=== PATIENT | female | born 1965 | race Hispanic/Latino ===

== ENCOUNTER 2017-06-20 17:37 | Emergency (ER) | payer SELFPAY ==
[2017-06-20 18:09] LABS: #Eosinphils 0.2 thou/uL (0.0-0.7); #Lymphocytes 2.1 thou/uL (1.20-3.40); #Monocytes 0.6 thou/uL (0.11-0.59); #Neutrophils 4.9 thou/uL (1.40-6.50); %Basophils 0.3 % (0.0-1.0); %Eosinophils 2.2 % (0.0-10.0); %Lymphocytes 26.9 % (21.0-51.0); %Monocytes 8.2 % (0.0-10.0); %Neutrophils 62.4 % (42.0-75.0); Hemoglobin 13.7 g/dL (12.0-16.0); Mean Corpuscular HGB CONC 33.9 g/dL (32.0-36.0); Mean Corpuscular Hemoglobin 29.1 pg (27.0-31.0); Mean Corpuscular Volume 85.7 fl (81.0-99.0); Mean Platelet Volume 7.7 fL (7.4-10.4); Platelet Count 236 thou/uL (130-400); RBC Distribution Width 13.1 % (11.5-14.5); Red Blood Cell (RBC) Count 4.71 mill/uL (4.20-5.40); White Blood Cell (WBC) Count 7.9 thou/uL (4.8-10.8)
[2017-06-20 18:35] LABS: ALT (SGPT) 25 U/L (8-55); AST (SGOT) 17 U/L (5-34); Albumin 4.5 g/dL (3.5-5.0); Alkaline Phosphatase 93 U/L (40-150); Anion Gap 14 mmol/L (10-20); BUN (Urea Nitrogen) 23 mg/dL (9.8-20.1); Bilirubin, Total 0.3 mg/dL (0.2-1.2); Calc. Creatinine Clearance 0 mL/min (70-130); Calcium 10.1 mg/dL (7.8-10.44); Carbon Dioxide 26 mmol/L (22-29); Chloride 99 mmol/L (98-107); Estimated GFR-MDRD 60; Globulin 3.3 g/dL (2.4-3.5); Glucose 304 mg/dL (70-105); Lipase 57 U/L (8-78); Potassium 4.6 mmol/L (3.5-5.1); Protein, Total 7.8 g/dL (6.0-8.3); Sodium 134 mmol/L (136-145)
[2017-06-20 18:37] LABS: CKMB 2.1 ng/mL (0-6.6); Troponin I Less than 0.010 ng/mL (< 0.028)
[2017-06-20] MEDS ORDERED: Metoclopramide HCl 10 MG/2 ML VIAL ONE (18:38)
[2017-06-20] MEDS ORDERED: diphenhydrAMINE 12.5 MG/5 ML UDCUP ONE (18:38)
[2017-06-20] MEDS ORDERED: diphenhydrAMINE 50 MG/ML VIAL ONE (18:38)
[2017-06-20 21:19] LABS: Bilirubin Negative (Negative); Blood, Urine Negative (Negative); Clarity CLEAR (Clear); Glucose, Urine (Dipstick) >=1000 mg/dL (Negative); Leukocyte Negative (Negative); Nitrite Negative (Negative); Protein, Urine (Dipstick) Negative (Neg-Trace); Specific Gravity, Urine 1.022 (1.002-1.036); Urobilinogen 0.2 mg/dL (0.2-1.0)
== END 2017-06-20 22:11 | disposition home or self-care (01) ==
LOC: ERS 17:37
DX: E11.65 Type 2 diabetes mellitus with hyperglycemia (principal); I10 Essential (primary) hypertension; K21.9 Gastro-esophageal reflux disease without esophagitis; Z86.73 Personal history of transient ischemic attack (TIA), and cerebral infarction without residual deficits; E78.5 Hyperlipidemia, unspecified
CPT/HCPCS: 36415; 36416; 80053; 81003; 82010; 82553; 83690; 84484; 85025; 93005; 96361; 96365; 96375; J1200; J2765

== ENCOUNTER 2017-06-26 21:31 | Inpatient (IN) | payer SELFPAY ==
[~2017-06-26 21:31] MED LIST: ISOVUE-370 76%-LOCM 1 ML ONE
--- NOTE | 2017-06-26 22:11 | RAD ---
AP VIEW OF THE CHEST 06/26/17 INDICATION: Chest pain. FINDINGS: There is a right suprahilar nodular opacity which is nonspecific. There is also right paramediastinal soft tissue densities that are incompletely characterized on this current exam. The left lung is altagracia ar. No acute osseous abnormality is evident. IMPRESSION: Right suprahilar opacity is nonspecific. Recommend CT of the thorax for further evaluation. Suprahila r mass or pneumonia is not excluded. Code T POS: SAMANTHA
[2017-06-26 22:19] LABS: #Eosinphils 0.2 thou/uL (0.0-0.7); #Lymphocytes 2.2 thou/uL (1.20-3.40); #Monocytes 0.5 thou/uL (0.11-0.59); #Neutrophils 4.2 thou/uL (1.40-6.50); %Basophils 0.6 % (0.0-1.0); %Eosinophils 2.7 % (0.0-10.0); %Lymphocytes 31.1 % (21.0-51.0); %Neutrophils 58.6 % (42.0-75.0); Hemoglobin 12.2 g/dL (12.0-16.0); Mean Corpuscular HGB CONC 34.1 g/dL (32.0-36.0); Mean Corpuscular Hemoglobin 29.7 pg (27.0-31.0); Mean Corpuscular Volume 86.9 fl (81.0-99.0); Mean Platelet Volume 7.7 fL (7.4-10.4); Platelet Count 237 thou/uL (130-400); RBC Distribution Width 13.3 % (11.5-14.5); Red Blood Cell (RBC) Count 4.12 mill/uL (4.20-5.40); White Blood Cell (WBC) Count 7.1 thou/uL (4.8-10.8)
[2017-06-26 22:40] LABS: ALT (SGPT) 22 U/L (8-55); AST (SGOT) 17 U/L (5-34); Albumin 4.2 g/dL (3.5-5.0); Alkaline Phosphatase 74 U/L (40-150); Anion Gap 14 mmol/L (10-20); BUN (Urea Nitrogen) 16 mg/dL (9.8-20.1); Bilirubin, Total 0.2 mg/dL (0.2-1.2); CK (CPK) 136 U/L (29-168); Calc. Creatinine Clearance 0 mL/min (70-130); Calcium 9.5 mg/dL (7.8-10.44); Carbon Dioxide 25 mmol/L (22-29); Chloride 106 mmol/L (98-107); Estimated GFR-MDRD 73; Globulin 2.9 g/dL (2.4-3.5); Glucose 80 mg/dL (70-105); Potassium 3.6 mmol/L (3.5-5.1); Protein, Total 7.1 g/dL (6.0-8.3); Sodium 141 mmol/L (136-145)
[2017-06-26 22:43] LABS: CKMB 1.8 ng/mL (0-6.6); Troponin I Less than 0.010 ng/mL (< 0.028)
[2017-06-26] MEDS ORDERED: Ketorolac Tromethamine 30 MG/ML VIAL ONE (23:07)
--- NOTE | 2017-06-26 23:56 | CT ---
CTA OF THE THORAX UTILIZING IV CONTRAST AND 3D REFORMATTED IMAGING 06/26/17 INDICATION: History of chest pain. COMPARISON: Radiograph dated 06/26/17. FINDINGS: No central or segmental pulmonary embolus is evident. There are multiple nodules that project along the bronchi and bronchioles of the right upper and righ t lower lobe, with a few demonstrating areas of central cavitation. One of the largest seen within th e medial right lower lobe measuring 2.4 cm. No nodules are visible within the left lung. No pathologically enlarged lymph node is seen within the mediastinum. The visualized upper abdomen is unremarkable for acute abnormality. No pleural effusion, or pneumothorax is evident. No definite acu te osseous abnormality is noted. IMPRESSION: 1. Numerous large soft tissue nodules, some with cavitation, seen distributed along the bronchia l tree of the right upper lobe and right lower lobe. Differential considerations include entities ind ucing a bronchocentric granulomatosis. This can be seen in patient's with a history of asthma and is reflective of an allergic bronchopulmonary aspergillosis. Other differential considerations include a typical sarcoidosis, pulmonary metastatic disease or cavitary infectious processes like TB cannot be entirely excluded. Entity such as Nadine's granulomatosis cannot be entirely excluded. Recommend pul monary consultation. 2. No central or segmental pulmonary embolus is demonstrated. POS: SAMANTHA
[2017-06-27] MEDS ORDERED: Piperacillin/Tazobactam 3.375 GM in Sodium Chloride 0.9% 100 ML IVPB SCH (01:00)
[2017-06-27 01:36] LABS: Troponin I Less than 0.010 ng/mL (< 0.028)
[2017-06-27] MEDS ORDERED: Ondansetron ODT 4 MG TAB SL PRN (03:06)
[2017-06-27] MEDS ORDERED: Ondansetron HCl/PF 4 MG/2 ML Vial IVP PRN (03:06)
[2017-06-27] MEDS ORDERED: Acetaminophen 325 MG TAB PO PRN (03:06)
[2017-06-27 03:12] VITALS: BMI 28.2
[2017-06-27] MEDS ORDERED: Tuberculin PPD 0.1 ML VIAL I-DERMAL SCH (04:00)
[2017-06-27 05:48] LABS: Troponin I Less than 0.010 ng/mL (< 0.028)
[2017-06-27] MEDS ORDERED: Dextrose 50% Abboject 50 ML SYRINGE SLOW IVP PRN (13:13)
[2017-06-27] MEDS ORDERED: Dextrose 5% in Water 1,000 ML IV PRN (13:13)
[2017-06-27] MEDS: HumaLOG 300 UNITS/3 ML VIAL SC PRN ×2 (13:57→17:15)
[2017-06-27 15:02] LABS: Hemoglobin A1c 7.4 % (4.0-6.0)
[2017-06-27] MEDS: Carvedilol 3.125 MG TAB PO SCH (19:46)
--- NOTE | 2017-06-27 23:54 | PDOC.PN ---
- Subjective Encounter Start Date: 06/28/17 Encounter Start Time: 17:00 Subjective: nsg notes rev, rylan ovn, no further c/o of chest or shoulder pain -: no SOB - Objective Vital Signs & Weight: Vital Signs (12 hours) Temp Pulse Resp BP Pulse Ox 06/27/17 20:33 97.8 F 83 18 141/88 H 97 06/27/17 19:56 97 06/27/17 19:53 98.1 F 90 18 06/27/17 17:00 98.1 F 90 18 144/91 H 96 06/27/17 12:02 97.7 F 84 16 138/87 98 Weight Weight 154 lb 5.177 oz I&O: 06/26/17 06/27/17 06/28/17 06:59 06:59 06:59 Intake Total 720 Balance 720 Result Diagrams: 06/26/17 22:01 06/26/17 22:01 Additional Labs: Accuchecks 06/27/17 06/27/17 06/27/17 19:26 15:55 11:00 POC Glucose 263 H 264 H 237 H 06/27/17 08:38 POC Glucose 122 H Phys Exam - Physical Examination Constitutional: NAD seated in hospital chair HEENT: PERRLA, moist MMs, sclera anicteric Neck: no nodes Respiratory: no wheezing, no rales, no rhonchi, clear to auscultation bilateral Cardiovascular: RRR, no significant murmur, no rub Gastrointestinal: soft, positive bowel sounds Musculoskeletal: no edema, pulses present Neurological: moves all 4 limbs Psychiatric: normal affect, A&O x 3 Dx/Plan - Plan 52F hx DM HTN who p/w chest pain chest pain * troponins negative * stress test negative * pending ECHO * suspect chest pain msk based on initial hx pulmonary lesions * pending quantiferon tb testing * called pulmonary office and pt's dtr - busy tones - trying to obtain most recent CT chest for comparison and whether or not the pt needs a bronch - she is clinically stable and has been followed for some kind of lesion. if she does not have a communicable disease (TB) then she likely can be released back into the care of her outpatient tea DM stable HTN stable diet diabetic activity as trung dvt ppx Review of Systems - Medications/Allergies Allergies/Adverse Reactions: Allergies Allergy/AdvReac Type Severity Reaction Status Date / Time No Known Drug Allergies Allergy Verified 06/27/17 00:47 Medications: Current Medications Aspirin (Aspirin) 325 mg PO DAILY [facility] Last Admin: 06/28/17 14:55 Dose: 325 mg Carvedilol (Coreg) 3.125 mg PO BID [facility] Last Admin: 06/28/17 20:21 Dose: 3.125 mg Dextrose/Water (Dextrose 50%) 25 gm SLOW IVP PRN PRN PRN Reason: Hypoglycemia Glucagon (Glucagon) 1 mg IM PRN PRN PRN Reason: Hypoglycemia Dextrose/Water (D5w) 1,000 mls @ 0 mls/hr IV .Q0M PRN; As Directed PRN Reason: Hypoglycemia Insulin Human Lispro (Humalog) 0 units SC .MODERATE SLIDING SC PRN PRN Reason: Moderate Correctional Scale Last Admin: 06/28/17 19:01 Dose: 10 unit Metformin HCl (Glucophage) 500 mg PO BID-[facility] Last Admin: 06/28/17 19:01 Dose: 500 mg Read Ppd Test Site 0 each PO ONE [facility] Stop: 06/29/17 09:01
[2017-06-28 05:28] LABS: Cardiac Risk 3.7 (Less than 4.5)
[2017-06-28] MEDS: metFORMIN 500 MG TAB PO SCH ×3 (08:10→19:01)
[2017-06-28] MEDS: Aspirin 325 MG TAB PO SCH ×2 (08:10→14:55)
[2017-06-28] MEDS: Carvedilol 3.125 MG TAB PO SCH ×3 (08:10→20:21)
--- NOTE | 2017-06-28 14:46 | NM ---
MYOCARDIAL PERFUSION SCAN: Date: 06/28/17 INDICATION: Chest pain. TECHNIQUE: The patient was given 9 mCi of technetium sestamibi for rest imaging and 27 mCi for stress imaging. P atient was stressed according to Adenosine protocol. Left ventricle was imaged with SPECT imaging. CT attenuation correction images obtained. FINDINGS: Normal activity is seen throughout the left ventricle on stress and rest images on nonattenuation cor rected images. There is no evidence of reversible ischemia. Wall motion is normal. Ejection fraction is recorded at 68%. IMPRESSION: No evidence of reversible ischemia. POS: DIONNA
[2017-06-28] MEDS: HumaLOG 300 UNITS/3 ML VIAL SC PRN ×2 (14:56→19:01)
[2017-06-28] MEDS ORDERED: ADENOSINE 60 MG/20 ML VIAL ONE (16:24)
--- NOTE | 2017-06-28 23:29 | PDOC.PN ---
- Subjective Encounter Start Date: 06/28/17 Encounter Start Time: 18:27 Subjective: nsg notes rev, rylan ovn, no further CP currently - Objective Vital Signs & Weight: Vital Signs (12 hours) Temp Pulse Resp BP BP Pulse Ox 06/28/17 22:23 146/85 H 06/28/17 20:00 97.9 F 77 18 150/103 H 97 06/28/17 16:00 97.7 F 72 18 127/88 97 06/28/17 14:40 97.4 F L 84 16 154/89 H 98 Weight Weight 154 lb 5.177 oz I&O: 06/27/17 06/28/17 06/29/17 06:59 06:59 06:59 Intake Total 720 420 Balance 720 420 Result Diagrams: 06/26/17 22:01 06/26/17 22:01 Additional Labs: Accuchecks 06/28/17 06/28/17 06/28/17 20:07 14:53 04:48 POC Glucose 236 H 370 H 206 H Phys Exam - Physical Examination Constitutional: NAD HEENT: PERRLA, moist MMs, sclera anicteric Neck: no nodes, no JVD, supple Respiratory: no wheezing, no rales, no rhonchi, clear to auscultation bilateral Cardiovascular: RRR, no significant murmur, no rub Gastrointestinal: soft, positive bowel sounds Musculoskeletal: no edema, pulses present Neurological: moves all 4 limbs Psychiatric: normal affect, A&O x 3 Dx/Plan - Plan * 52F hx DM HTN who p/w chest pain chest pain * troponins negative * stress test negative * pending ECHO * suspect chest pain msk based on initial hx pulmonary lesions * pending quantiferon tb testing * pt has been followed by pulmonary in another town in the past for "spots on the lung" * sputum afb DM stable HTN stable diet diabetic activity as trung dvt ppx Review of Systems - Medications/Allergies Allergies/Adverse Reactions: Allergies Allergy/AdvReac Type Severity Reaction Status Date / Time No Known Drug Allergies Allergy Verified 06/27/17 00:47 Medications: Current Medications Aspirin (Aspirin) 325 mg PO DAILY [facility] Last Admin: 06/29/17 09:20 Dose: 325 mg Carvedilol (Coreg) 3.125 mg PO BID [facility] Last Admin: 06/29/17 09:20 Dose: 3.125 mg Dextrose/Water (Dextrose 50%) 25 gm SLOW IVP PRN PRN PRN Reason: Hypoglycemia Glucagon (Glucagon) 1 mg IM PRN PRN PRN Reason: Hypoglycemia Dextrose/Water (D5w) 1,000 mls @ 0 mls/hr IV .Q0M PRN; As Directed PRN Reason: Hypoglycemia Insulin Human Lispro (Humalog) 0 units SC .MODERATE SLIDING SC PRN PRN Reason: Moderate Correctional Scale Last Admin: 06/29/17 18:04 Dose: 6 unit Metformin HCl (Glucophage) 500 mg PO BID-[facility] Last Admin: 06/29/17 18:04 Dose: 500 mg
[2017-06-29] MEDS: HumaLOG 300 UNITS/3 ML VIAL SC PRN ×3 (06:22→19:55)
[2017-06-29] MEDS ORDERED: READ PPD TEST SITE PO SCH (09:00)
[2017-06-29] MEDS: Carvedilol 3.125 MG TAB PO SCH ×2 (09:20→19:55)
[2017-06-29] MEDS: Aspirin 325 MG TAB PO SCH (09:20)
[2017-06-29] MEDS: metFORMIN 500 MG TAB PO SCH ×2 (09:20→18:04)
--- NOTE | 2017-06-29 18:31 | PDOC.PN ---
- Subjective Encounter Start Date: 06/29/17 Encounter Start Time: 18:31 Subjective: nsg notes rev, rylan ovn, systems programmer analyst phones used, no new c/o -: pt wants to know if she can go home post hospitalization or will need -: to back to [facility] - Objective Vital Signs & Weight: Vital Signs (12 hours) Temp Pulse Resp BP Pulse Ox 06/29/17 10:40 98.1 F 66 16 153/91 H 96 06/29/17 08:00 98.1 F 68 16 96 06/29/17 06:37 96 Weight Weight 154 lb 5.177 oz I&O: 06/28/17 06/29/17 06/30/17 06:59 06:59 06:59 Intake Total 720 770 720 Balance 720 770 720 Result Diagrams: 06/26/17 22:01 07/06/17 11:50 Additional Labs: Accuchecks 06/29/17 06/29/17 06/28/17 15:53 04:36 20:07 POC Glucose 299 H 245 H 236 H Phys Exam - Physical Examination Constitutional: NAD HEENT: PERRLA, moist MMs, sclera anicteric Neck: no nodes Respiratory: no wheezing, no rales, no rhonchi, clear to auscultation bilateral Cardiovascular: RRR, no significant murmur, no rub Gastrointestinal: soft, positive bowel sounds Musculoskeletal: no edema, pulses present Neurological: moves all 4 limbs Psychiatric: normal affect, A&O x 3 Dx/Plan - Plan * 52F hx DM HTN who p/w chest pain chest pain * troponins negative * stress test negative * pending ECHO * suspect chest pain msk based on initial hx pulmonary lesions * pending quantiferon tb testing * pt has been followed by pulmonary in another town in the past for "spots on the lung" * sputum afb * apprec ID c/s DM stable HTN stable diet diabetic activity as trung dvt ppx Review of Systems - Medications/Allergies Allergies/Adverse Reactions: Allergies Allergy/AdvReac Type Severity Reaction Status Date / Time No Known Drug Allergies Allergy Verified 06/27/17 00:47
[2017-06-30] MEDS: HumaLOG 300 UNITS/3 ML VIAL SC PRN ×4 (04:51→20:41)
[2017-06-30] MEDS: Aspirin 325 MG TAB PO SCH (08:30)
[2017-06-30] MEDS: Carvedilol 3.125 MG TAB PO SCH ×2 (08:30→20:41)
[2017-06-30] MEDS: metFORMIN 500 MG TAB PO SCH ×2 (08:30→16:50)
--- NOTE | 2017-06-30 11:15 | CON ---
DATE OF CONSULTATION: 06/30/2017 REASON FOR CONSULTATION: Abnormal lung findings. HISTORY OF PRESENT ILLNESS: A 52-year-old with history of type 2 diabetes, hypertension, prior CVA, who lives in [place] with family members and has been in the area in [facility] after being incarcerated for about a year because of cocaine use. The patient developed chest pain which was localized to the left side of the anterior chest area radiating to the left upper extremity and was brought to the emergency room and chest x-ray showed abnormalities in the right lung. CT scan confirmed those abnormalities and the results are discussed below. She denies any headaches, no change in visual symptoms. A little bit of sore throat. No toothache, no back pain. She has a little bit of neck pain. The chest pain and the left upper extremity pain has resolved. Very little cough. Very little sputum production, no hemoptysis. Denies any fever, chills, or night sweats. She has displayed a weight gain over the past few months. No abdominal pain or diarrhea. No genital symptoms. She has chronic pain in the joints of the wrist, metacarpophalangeal joints, knees and ankles for the past year and a half approximately. She had a nuclear medicine stress study on admission which was negative. PAST MEDICAL HISTORY: Diabetes type 2, hypertension, prior CVA, GERD. PAST SURGICAL HISTORY: x3. Some hand surgery. SOCIAL HISTORY: She used to work with [email or web address] in [place]. , but . Use of cocaine in the past, mostly by inhaled route, never used intravenous drugs. Never a smoker. ALLERGIES: None. CURRENT MEDICATIONS: Aspirin, Coreg, dextrose, glucagon, insulin, Glucophage. FAMILY HISTORY: Diabetes. No history of tuberculosis. The patient has a history of lung lesions identified in [place] and evaluated with various tests including apparently a lung biopsy. Those were done in the hospital in [facility] apparently. We will have to get records. She also has a report of positive tuberculosis test in the past. She says that nothing was done about it. PHYSICAL EXAMINATION: VITAL SIGNS: Currently, normal. Slight elevation in systolic blood pressure. SKIN: Normal. No lymphadenopathy. HEENT: Ocular movements conjugate. Nasal and ear exam normal. Oral cavity unremarkable. NECK: Supple. LUNGS: With symmetric air entry, no crackles or wheezing. HEART: S1, S2, no S3, S4, or murmurs. Regular rate. ABDOMEN: Soft, not distended or tender. No ascites. : No bladder distention. EXTREMITIES: The patient has pain and swelling of the wrists and metacarpophalangeal joints of both hands, pain on range of motion. The same thing with knees and ankles. NEUROLOGIC: Nonfocal. Pulses are diminished in dorsalis pedis. Cap refill less than 3 seconds. Plantar responses are flexure. Cognitive function appears to be intact. LABORATORY: Chemistry remarkable for hyperglycemia, otherwise normal. White cell count normal. Other findings are with fairly within normal limits. Urinalysis with glycosuria, but otherwise normal. Toxicology was not remarkable and a CT of chest demonstrated soft tissue nodules, some with cavitation along the bronchial tree, right upper lobe and right lower lobe. ASSESSMENT: 1. Type 2 diabetes. 2. Prior cerebrovascular accident. 3. Hypertension. 4. Chronic lung nodules per history with prior lung biopsy done in [place] per patient's description. 5. Prior history of positive PPD tests. 6. Atypical chest pain with negative stress study and abnormalities noted in the CT scan of chest. 7. Polyarticular inflammatory arthropathy, chronic. DISCUSSION: Differential diagnosis includes pulmonary tuberculosis, which needs to be ruled out with proper studies, lung malignancy appears to be less likely in view of the reportedly negative biopsy done in [place], autoimmune syndromes including rheumatoid arthritis, associated pulmonary changes need to be considered, other types of vasculitides appears to be less likely since the patient does not have a lot of symptoms or other evidence to suggest a systemic involvement. Fungal etiology would appear to be less likely , atypical mycobacterial infection less likely as well. Hematogenous pneumonia with cavitation associated bacteremia is quite unlikely in view of lack of fever , leukocytosis or positive blood cultures. We will need to obtain records from [facility] in [place] with biopsy results and other tests that have been completed. In the meantime, sputum induction for AFB, rheumatoid and antinuclear antibody tests, may need a repeat sampling through a bronchoscopy. RODERICKD
[2017-06-30 13:32] LABS: ANA Symphony (Qualitative) Negative (Negative); CCP IgG Antibody 0.8 EliAU/mL (<7 Negative); EliA RAS New Method **** NEW METHOD ****; Rheumatoid Factor IgA Antibody 3.4 IU/mL (<14 Negative); Rheumatoid Factor IgM Antibody Less than 0.5 IU/mL (<3.5 Negative); dsDNA IgG Antibody Less than 0.5 IU/mL (<10 Negative)
[2017-06-30] MEDS: Acetaminophen 325 MG TAB PO PRN (18:58)
--- NOTE | 2017-06-30 23:35 | PDOC.PN ---
- Subjective Encounter Start Date: 06/26/17 Encounter Start Time: 17:00 Subjective: nsg notes rev, rylan ovn, no new c/o - Objective Vital Signs & Weight: Vital Signs (12 hours) Temp Pulse Resp BP Pulse Ox 06/30/17 20:00 98.0 F 82 18 162/102 H 97 06/30/17 16:00 97.4 F L 75 18 156/99 H 98 06/30/17 11:57 97.6 F 76 16 134/95 H 98 Weight Weight 154 lb 5.177 oz I&O: 06/29/17 06/30/17 07/01/17 06:59 06:59 06:59 Intake Total 770 1070 600 Balance 770 1070 600 Result Diagrams: 06/26/17 22:01 07/06/17 11:50 Additional Labs: Accuchecks 06/30/17 06/30/17 06/30/17 19:44 16:07 11:23 POC Glucose 281 H 276 H 351 H 06/30/17 04:42 POC Glucose 280 H Phys Exam - Physical Examination Constitutional: NAD HEENT: PERRLA, moist MMs, sclera anicteric Neck: no nodes Respiratory: no wheezing, no rales, no rhonchi, clear to auscultation bilateral Cardiovascular: RRR, no significant murmur, no rub Gastrointestinal: soft, positive bowel sounds Musculoskeletal: no edema Neurological: moves all 4 limbs Psychiatric: normal affect, A&O x 3 Dx/Plan - Plan * 52F hx DM HTN who p/w chest pain chest pain * troponins negative * stress test negative * pending ECHO * suspect chest pain msk based on initial hx pulmonary lesions, concern for tuberculosis * pending quantiferon tb testing * pt has been followed by pulmonary in another town in the past for "spots on the lung" * sputum afb smear and Cx pending * pt states she has had positive skin testing before but does not recall a hx of taking any sort of anti-tb regimen * apprec ID c/s DM stable HTN stable diet diabetic activity as trung dvt ppx Review of Systems - Medications/Allergies Allergies/Adverse Reactions: Allergies Allergy/AdvReac Type Severity Reaction Status Date / Time No Known Drug Allergies Allergy Verified 06/27/17 00:47
[2017-07-01] MEDS: Carvedilol 3.125 MG TAB PO SCH ×2 (09:22→20:02)
[2017-07-01] MEDS: Aspirin 325 MG TAB PO SCH (09:22)
[2017-07-01] MEDS: metFORMIN 500 MG TAB PO SCH ×2 (09:22→17:02)
[2017-07-01] MEDS: HumaLOG 300 UNITS/3 ML VIAL SC PRN ×2 (13:36→17:02)
--- NOTE | 2017-07-01 15:02 | EKG ---
Test Reason : CHEST PAIN Blood Pressure : / mmHG Vent. Rate : 082 BPM Atrial Rate : 082 BPM P-R Int : 166 ms QRS Dur : 086 ms QT Int : 386 ms P-R-T Axes : 049 022 032 degrees QTc Int : 450 ms Normal sinus rhythm Normal ECG Confirmed by AYDEE LEHMAN ([id number]), book or script editor BO MUNIZ ([id number]) on 07/01/2017 3:00:30 PM Referred By: Confirmed By:AYDEE LEHMAN
[2017-07-01] MEDS: Insulin Detemir 100 UNITS/ML 10 UNITS in Pre-Filled Syringe 1 EACH SC SCH (20:00)
--- NOTE | 2017-07-01 23:36 | PDOC.PN ---
- Subjective Encounter Start Date: 07/01/17 Encounter Start Time: 18:00 Subjective: nsg notes rev, rylan ovn, no new issues - Objective Vital Signs & Weight: Vital Signs (12 hours) Temp Pulse Resp BP BP Pulse Ox 07/01/17 20:05 97.9 F 72 20 99 07/01/17 19:14 97.9 F 72 20 146/92 H 99 07/01/17 16:00 97.5 F L 82 18 159/95 H 98 07/01/17 12:17 97.7 F 77 18 127/83 98 Weight Weight 154 lb 5.177 oz I&O: 06/30/17 07/01/17 07/02/17 06:59 06:59 06:59 Intake Total 1070 1100 1080 Balance 1070 1100 1080 Result Diagrams: 06/26/17 22:01 07/06/17 11:50 Additional Labs: Accuchecks 07/01/17 07/01/17 07/01/17 19:15 11:09 04:11 POC Glucose 245 H 349 H 235 H Phys Exam - Physical Examination Constitutional: NAD HEENT: PERRLA, sclera anicteric Neck: no nodes Respiratory: no wheezing, no rales, no rhonchi Cardiovascular: RRR, no significant murmur, no rub Gastrointestinal: soft, positive bowel sounds Musculoskeletal: no edema Neurological: moves all 4 limbs Psychiatric: normal affect, A&O x 3 Dx/Plan - Plan * 52F hx DM HTN who p/w chest pain chest pain * troponins negative * stress test negative * pending ECHO * suspect chest pain msk based on initial hx pulmonary lesions, concern for tuberculosis * pending quantiferon tb testing * pt has been followed by pulmonary in another town in the past for "spots on the lung" * sputum afb smear and Cx pending * pt states she has had positive skin testing before but does not recall a hx of taking any sort of anti-tb regimen * apprec ID c/s DM stable HTN stable diet diabetic activity as trung dvt ppx Review of Systems - Medications/Allergies Allergies/Adverse Reactions: Allergies Allergy/AdvReac Type Severity Reaction Status Date / Time No Known Drug Allergies Allergy Verified 06/27/17 00:47
[2017-07-02] MEDS: HumaLOG 300 UNITS/3 ML VIAL SC PRN ×3 (05:24→20:12)
[2017-07-02] MEDS: Aspirin 325 MG TAB PO SCH (08:14)
[2017-07-02] MEDS: Carvedilol 3.125 MG TAB PO SCH ×2 (08:14→20:11)
[2017-07-02] MEDS: metFORMIN 500 MG TAB PO SCH ×2 (08:14→16:53)
[2017-07-02] MEDS: Insulin Detemir 100 UNITS/ML 10 UNITS in Pre-Filled Syringe 1 EACH SC SCH ×2 (08:14→20:11)
[2017-07-02] MEDS: Acetaminophen 325 MG TAB PO PRN (16:53)
--- NOTE | 2017-07-03 01:02 | PDOC.PN ---
- Subjective Encounter Start Date: 07/02/17 Encounter Start Time: 19:00 Subjective: LATE ENTRY FOR DATE OF ENCOUNTER 07/02 -: nsg notes rev, rylan ovn, no new issues - Objective Vital Signs & Weight: Vital Signs (12 hours) Temp Pulse Resp BP Pulse Ox 07/02/17 19:58 98.0 F 75 20 98 07/02/17 19:32 98.0 F 75 20 154/93 H 98 Weight Weight 154 lb 5.177 oz I&O: 07/01/17 07/02/17 07/03/17 06:59 06:59 06:59 Intake Total 1100 1680 1920 Balance 1100 1680 1920 Result Diagrams: 06/26/17 22:01 07/06/17 11:50 Additional Labs: Accuchecks 07/02/17 07/02/17 07/02/17 19:29 16:15 11:04 POC Glucose 325 H 268 H 311 H 07/02/17 07/01/17 04:23 16:29 POC Glucose 323 H 210 H Phys Exam - Physical Examination Constitutional: NAD HEENT: PERRLA, moist MMs, sclera anicteric Neck: no nodes Respiratory: no wheezing, no rales, no rhonchi Cardiovascular: RRR, no significant murmur, no rub Gastrointestinal: soft, positive bowel sounds Musculoskeletal: no edema, pulses present Neurological: moves all 4 limbs Psychiatric: normal affect, A&O x 3 Dx/Plan - Plan * 52F hx DM HTN who p/w chest pain chest pain, ruled out ACS pulmonary lesions, concern for tuberculosis * pending quantiferon tb testing * pt has been followed by pulmonary in another town in the past for "spots on the lung" * sputum afb smear and Cx pending * pt states she has had positive skin testing before but does not recall a hx of taking any sort of anti-tb regimen * apprec ID c/s DM stable HTN stable diet diabetic activity as trung dvt ppx Review of Systems - Medications/Allergies Allergies/Adverse Reactions: Allergies Allergy/AdvReac Type Severity Reaction Status Date / Time No Known Drug Allergies Allergy Verified 06/27/17 00:47
[2017-07-03] MEDS: HumaLOG 300 UNITS/3 ML VIAL SC PRN ×3 (06:04→16:17)
[2017-07-03] MEDS: metFORMIN 500 MG TAB PO SCH ×2 (09:16→17:24)
[2017-07-03] MEDS: Carvedilol 3.125 MG TAB PO SCH ×2 (09:16→21:09)
[2017-07-03] MEDS: Aspirin 325 MG TAB PO SCH (09:16)
[2017-07-03] MEDS: Insulin Detemir 100 UNITS/ML 10 UNITS in Pre-Filled Syringe 1 EACH SC SCH ×2 (09:18→21:09)
--- NOTE | 2017-07-03 13:39 | PDOC.PN ---
- Subjective Encounter Start Date: 07/03/17 Encounter Start Time: 13:30 Subjective: Expresses no complaint. - Objective Vital Signs & Weight: Vital Signs (12 hours) Temp Pulse Resp BP Pulse Ox 07/03/17 11:24 97.6 F 65 16 133/89 97 07/03/17 08:00 98.9 F 86 18 97 07/03/17 07:36 98.9 F 86 18 132/94 H 97 Weight Weight 154 lb 5.177 oz I&O: 07/02/17 07/03/17 07/04/17 06:59 06:59 06:59 Intake Total 1680 2470 Balance 1680 2470 Result Diagrams: 06/26/17 22:01 06/26/17 22:01 Additional Labs: Accuchecks 07/03/17 07/03/17 07/02/17 11:06 04:42 19:29 POC Glucose 364 H 286 H 325 H 07/02/17 16:15 POC Glucose 268 H Phys Exam - Physical Examination Constitutional: NAD HEENT: sclera anicteric Neck: no JVD Respiratory: clear to auscultation bilateral Cardiovascular: RRR Gastrointestinal: soft Musculoskeletal: no edema Neurological: moves all 4 limbs Psychiatric: A&O x 3 Dx/Plan (1) HTN (hypertension) Code(s): I10 - ESSENTIAL (PRIMARY) HYPERTENSION Status: Acute Comment: BP satisfactroy.. (2) Diabetes Code(s): E11.9 - TYPE 2 DIABETES MELLITUS WITHOUT COMPLICATIONS Status: Acute Comment: BS satisfactory.. (3) Multiple lung nodules Status: Chronic Plan: f/u quantiferon TB testing. - Plan -: continue current therapy. -: f/u quatiferon tb testing. * .
[2017-07-03] MEDS ORDERED: Labetalol HCl 100 MG/20 ML VIAL SLOW IVP PRN (18:16)
[2017-07-04] MEDS: HumaLOG 300 UNITS/3 ML VIAL SC PRN ×3 (05:03→17:03)
[2017-07-04] MEDS: Insulin Detemir 100 UNITS/ML 10 UNITS in Pre-Filled Syringe 1 EACH SC SCH ×2 (08:50→20:36)
[2017-07-04] MEDS: Aspirin 325 MG TAB PO SCH (08:51)
[2017-07-04] MEDS: metFORMIN 500 MG TAB PO SCH ×2 (08:51→17:03)
[2017-07-04] MEDS: Carvedilol 3.125 MG TAB PO SCH ×2 (08:51→20:36)
--- NOTE | 2017-07-04 10:38 | PDOC.PN ---
- Subjective Encounter Start Date: 07/04/17 Encounter Start Time: 09:50 -: Expresses no complaint.. - Objective Vital Signs & Weight: Vital Signs (12 hours) Temp Pulse Resp BP Pulse Ox 07/04/17 08:00 97.8 F 84 18 160/99 H 97 Weight Weight 154 lb 5.177 oz I&O: 07/03/17 07/04/17 07/05/17 06:59 06:59 06:59 Intake Total 2470 600 Balance 2470 600 Result Diagrams: 06/26/17 22:01 06/26/17 22:01 Additional Labs: Accuchecks 07/04/17 07/03/17 07/03/17 05:03 19:43 15:53 POC Glucose 295 H 286 H 308 H 07/03/17 11:06 POC Glucose 364 H Phys Exam - Physical Examination Constitutional: NAD HEENT: sclera anicteric Neck: no JVD Respiratory: clear to auscultation bilateral Cardiovascular: RRR Gastrointestinal: soft Neurological: moves all 4 limbs Psychiatric: A&O x 3 Dx/Plan (1) HTN (hypertension) Code(s): I10 - ESSENTIAL (PRIMARY) HYPERTENSION Status: Acute Comment: BP satisfactroy.. (2) Diabetes Code(s): E11.9 - TYPE 2 DIABETES MELLITUS WITHOUT COMPLICATIONS Status: Acute Comment: BS has been high. On sliding scale. (3) Multiple lung nodules Status: Chronic - Plan -: Awaiting Quertiferon tb testing results. * .
[2017-07-05] MEDS: HumaLOG 300 UNITS/3 ML VIAL SC PRN ×3 (05:48→16:59)
[2017-07-05] MEDS: Insulin Detemir 100 UNITS/ML 10 UNITS in Pre-Filled Syringe 1 EACH SC SCH ×2 (08:15→20:06)
[2017-07-05] MEDS: Aspirin 325 MG TAB PO SCH (08:15)
[2017-07-05] MEDS: Carvedilol 3.125 MG TAB PO SCH ×2 (08:16→20:05)
[2017-07-05] MEDS: metFORMIN 500 MG TAB PO SCH ×2 (08:16→16:59)
--- NOTE | 2017-07-05 12:07 | PDOC.PN ---
- Subjective Encounter Start Date: 07/05/17 Encounter Start Time: 12:04 CC: dyspnea sub: Pt denies dyspnea, says she feels better - Objective Vital Signs & Weight: Vital Signs (12 hours) Temp Pulse Resp BP Pulse Ox 07/05/17 08:08 97.6 F 71 18 139/92 H 98 07/05/17 08:00 97.6 F 71 18 07/05/17 04:00 97.6 F 69 20 136/86 97 Weight Weight 154 lb 5.177 oz I&O: 07/04/17 07/05/17 07/06/17 06:59 06:59 06:59 Intake Total 600 Balance 600 Result Diagrams: 06/26/17 22:01 06/26/17 22:01 Additional Labs: Accuchecks 07/05/17 07/04/17 07/04/17 04:26 19:38 16:35 POC Glucose 278 H 258 H 285 H Dx/Plan - Plan - Physical Examination Constitutional: NAD, awake, alert HEENT: sclera anicteric Neck: no JVD Respiratory: clear to auscultation bilaterally, no wheezing, no rhonchi Cardiovascular: RRR, no murmur, no rubs, no gallop Gastrointestinal: soft, nttp, no guarding, no rebound tenderness Neurological: moves all 4 limbs, strength intact Psychiatric: A&O x 3, follows commands Dx/Plan (1) HTN (hypertension) Code(s): I10 - ESSENTIAL (PRIMARY) HYPERTENSION Status: Acute Comment: BP satisfactroy.. (2) Diabetes Code(s): E11.9 - TYPE 2 DIABETES MELLITUS WITHOUT COMPLICATIONS Status: Acute Comment: BS has been high. On sliding scale. (3) Multiple lung nodules Status: Chronic - Plan -: AFB smear negative x3, but culture still pending -: TB quantiferon negative, Will d/w ID and if ok with ID will dc patient home and follow up as outpt case d.w pt & RN
[2017-07-05] MEDS ORDERED: Metoprolol Tartrate 5 MG/5 ML VIAL IVP PRN (16:27)
[2017-07-05] MEDS ORDERED: niCARdipine 40MG In NaCl 40 MG/200 ML BAG IVPB SCH (16:30)
[2017-07-06] MEDS: Acetaminophen 325 MG TAB PO PRN (00:31)
[2017-07-06] MEDS ORDERED: cloNIDine 0.1 MG TAB PO SCH (01:15)
[2017-07-06] MEDS: HumaLOG 300 UNITS/3 ML VIAL SC PRN ×3 (06:24→18:06)
[2017-07-06 07:52] VITALS: TEMP 97.6
[2017-07-06] MEDS: Carvedilol 3.125 MG TAB PO SCH (08:15)
[2017-07-06] MEDS: metFORMIN 500 MG TAB PO SCH (08:15)
[2017-07-06] MEDS: Aspirin 325 MG TAB PO SCH (08:15)
[2017-07-06] MEDS: Insulin Detemir 100 UNITS/ML 10 UNITS in Pre-Filled Syringe 1 EACH SC SCH (08:43)
[2017-07-06] MEDS ORDERED: Insulin Detemir 100 UNITS/ML 10 UNITS SC SCH (11:45)
[2017-07-06 12:19] LABS: Anion Gap 12 mmol/L (10-20); BUN (Urea Nitrogen) 18 mg/dL (9.8-20.1); Calc. Creatinine Clearance 77 mL/min (70-130); Calcium 9.8 mg/dL (7.8-10.44); Carbon Dioxide 26 mmol/L (22-29); Chloride 101 mmol/L (98-107); Estimated GFR-MDRD 62; Glucose 348 mg/dL (70-105); Potassium 4.7 mmol/L (3.5-5.1); Sodium 134 mmol/L (136-145)
[2017-07-06] MEDS ORDERED: Carvedilol 6.25 MG TAB PO SCH (17:00)
[2017-07-06 18:07] VITALS: BP 162/99
--- NOTE | 2017-07-06 18:36 | CON ---
DATE OF CONSULTATION: 07/06/2017 HISTORY OF PRESENT ILLNESS: Ms. Molina is very pleasant 52-year-old female, who has been living in the [facility]. I was consulted for an abnormal chest radiograph. She has been here since the . She presented to the hospital with complaints of chest discomfort. She underwent a CT angiogram in the emergency room that did not show thromboembolic disease, but showed multiple nodules. I was consulted for her abnormal x-ray. PAST MEDICAL HISTORY: Remarkable for: 1. Diabetes. 2. Hypertension. 3. Reflux disease. 4. Cerebrovascular accident. 5. Liver disorder. 6. Three C-sections. 7. History of surgery on her left hand. 8. History of a surgical lung biopsy that did not show malignancy or granulomas. She said she had her lung biopsy done in early 2014 and was followed until 2016 when she went into the long term. She had no change in her chest radiograph over 2 years after a surgical lung biopsy and was told she was fine. Cultures were apparently negative, reviewing records from [place]. FAMILY HISTORY: Negative for lung disease in early age. SOCIAL HISTORY: She is apparently up in this area now after she was released from long term. ALLERGIES: She has no reported drug allergies. REVIEW OF SYSTEMS: 12 Point review otherwise negative. MEDICATIONS: She was on no medications prior to admission. PHYSICAL EXAMINATION: GENERAL: She is afebrile, heart rate 83, respiratory rate 18, and oximetry is 98 on room air. HEENT: Pupils are equal. Sclerae is anicteric. NECK: Supple, no lymphadenopathy. LUNGS: Clear. HEART: Regular rhythm. S1 and S2 are normal. ABDOMEN: Soft and nontender. EXTREMITIES: Without clubbing, cyanosis or edema. IMPRESSION AND PLAN: Multiple pulmonary nodules, status post surgical lung biopsy that did not identify any specific pathology. Given that her radiograph was stable by her history for 2 years after her surgical lung biopsy, no further workup would normally be indicated. If she desires, it will certainly be happy to compare her recent CT to old CTs. She wishes to make an appointment in the office. No further workup is indicated as an inpatient in my opinion. This is a 50 minute consult, greater than 50% spent on the unit for coordination of care. KANE
[2017-07-06] MEDS ORDERED: Lisinopril 20 MG TAB PO SCH (21:00)
--- NOTE | 2017-07-07 00:11 | DIS ---
DISCHARGE DIAGNOSES: 1. Pulmonary lesion. 2. Rule out tuberculosis. 3. Diabetes type 2, uncontrolled. 4. Hypertension. DATE OF ADMISSION: 06/27/2017 DATE OF DISCHARGE: 07/06/2017 HOSPITAL COURSE: The patient is a 52-year-old female who presented with chest pain. The patient initially underwent a cardiac workup including a stress test and an echocardiogram. Stress test did not indicate any evidence of reversible ischemia and her ejection fraction on the stress test was 68%. She also underwent an echocardiogram which indicated EF of 55-60% with left atrium is mildly dilated. No evidence of mitral regurgitation, no structurally normal aortic valve and no significant stenosis or regurgitation on her echocardiogram. The patient during her hospital stay given the pulmonary nodules, underwent a QuantiFERON TB testing. This is per documentation. The patient has been following pulmonary in another town given the significant nodules on her lung. Sputum for acid fast bacillus was sent. Initial sputum cultures were negative; however, the final culture report was pending. The smears have been negative, but the culture report was pending. The patient then had a QuantiFERON Gold, which was negative. Patient was seen by Infectious Disease and by Pulmonary for the pulmonary nodule evaluation. Patient per Respiratory, Pulmonology and Infectious Disease stated that the patient was okayed to be discharged home. The patient is to follow up with her relations director as an outpatient and also with her primary care doctor. The patient also had a biopsy at [facility] in [place] and according to patient, the results were negative. DISCHARGE MEDICATIONS: Patient's discharge medications were as the following, she was put on metformin 500 mg p.o. b.i.d., lisinopril 20 mg p.o. b.i.d. and Coreg 25 mg p.o. b.i.d. The patient was receiving insulin in the hospital; however, I did not prescribe her the insulin since she did not receive any teaching and also patient is not in town, she is out of town and I am not sure who will follow up with her in regards to insulin administration and blood sugar checks. She was asked to follow up with her primary care doctor in the next couple of days for more closer monitoring on her blood sugars. We will also order her Accu-Cheks so that she can check her blood sugars at home. Patient will be discharged home today. spoke with her daughter about following up with her pcp for insulin. Also updated Anh about her hospital course. KANE
[2017-07-07] MEDS ORDERED: Insulin Detemir 100 UNITS/ML 10 UNITS SC SCH (21:00)
--- NOTE | 2017-07-19 10:53 | HP ---
CHIEF COMPLAINT: Chest pain. HISTORY OF PRESENT ILLNESS: This is a 52-year-old female with minimal past medical history that pres ents with a chief complaint of chest pain. She states that it radiates down the left upper extremity and is really more involving her shoulder all the way down her left extremity and actually spares he r chest. The patient has a known history of hypertension and hypercholesterolemia, but no prior know n history of coronary artery disease. The patient denies any prior similar episodes. The patient de nies any episodes of fevers, chills, shortness of breath, or diaphoretic episodes with this chest remedios n. REVIEW OF SYSTEMS: As per HPI, otherwise is negative. PAST MEDICAL HISTORY: Significant for hypertension and hyperlipidemia as noted above with a history of CVA in 2012, gastroesophageal reflux disease, 3 C-sections, and left hand surgery in 2017. HOME MEDICATIONS: Please see the EMR for full details. ALLERGIES: No known drug allergies. FAMILY HISTORY: Significant for coronary artery disease, diabetes, hypertension in multiple family m embers. SOCIAL HISTORY: The patient is currently a resident in a "[facility] She denies any acti ve tobacco, alcohol, or illicit drug use. She is predominantly British speaking with limited Kazakh conversational capabilities. PHYSICAL EXAMINATION: GENERAL: The patient is awake, alert, conversant, in no acute distress, seated on the edge of the spital chair. HEENT: Normocephalic, atraumatic. Moist mucous membranes. Equal ocular motions are intact. CARDIOVASCULAR: S1 and S2. No murmurs, rubs, or gallops. Pulses 2+ bilateral upper extremities. N o pitting pedal edema. RESPIRATORY: Reasonable air movement. No conversational dyspnea. No wheezes, rales, or rhonchi. GASTROINTESTINAL: Positive bowel sounds, soft and nontender to palpation. MUSCULOSKELETAL: Moving all 4 extremities equally. LABORATORY DATA AND IMAGING: WBC 7.1, hemoglobin 12.2, hematocrit 35.8, platelets 237. Sodium 141, potassium 3.6, chloride 106, bicarbonate 25, BUN 16, creatinine 0.82, glucose 80, calcium 9.5, total bilirubin 0.2, AST 17, ALT 22, alkaline phosphatase 74, creatine kinase 136, troponin less than 0.01 x2. Total protein 7.1, albumin 4.2. ASSESSMENT AND PLAN: This is a 52-year-old female with a chief complaint of left shoulder pain radia ting down her arm. 1. Left shoulder pain, certainly could be an atypical presentation of acute coronary syndrome-type s yndrome. Serial troponins, maintain the patient on telemetry. Given the patient's risk factors, we will also likely pursue a stress test. 2. Type 2 diabetes and hemoglobin A1c. Continue the patient on her home antihyperglycemic regimen. 3. Hypertension, appears to be grossly stable, continue to monitor, continue home regimen. 4. History of cerebrovascular accident, appears to be stable. 5. An unclear history of some pulmonary lesions that the patient had been followed on an outpatient basis for. We will need to obtain further outpatient records in this regard. Admit the patient for observation.
--- NOTE | 2017-08-05 13:34 | STRESS ---
Acquisition Time: 2017-06-28 13:25:51 Total Exercise Time: 00:04:00 Test Indications: CHEST PAIN Medications: Protocol: ADENOSINE Max HR: 123 BPM 72% of Pred: 169 BPM Max BP: 142/088 mmHG Max Work Load: 1.0 METS RESTING ECG: NORMAL SINUS RHYTHM AT 69 BPM SYMPTOMS: NONE APPROPRIATE BLOOD PRESSURE RESPONSE FOR ADENOSINE ECTOPY: NONE ECG RESPONSE: NO SIGNIFICANT CHANGES INTERPRETATION: NEGATIVE ECG/AWAIT NUCLEAR IMAGES FOR DEFINITIVE DIAGNOSIS Confirmed by DR. Daquan FAJARDO ([id number]), newspaper copy editor KURT ROWE ([id number]) on 08/05/2017 1:33:33 PM Referred By: Sandra DINERO Confirmed By:DR. Daquan FAJARDO
== END 2017-07-06 18:47 | disposition home or self-care (01) | DRG 204 ==
LOC: ERS 21:31 → T4-B 06-27 00:15
PROVIDERS: ADMIT Internal Medicine; ATTEND Internal Medicine
DX: R91.8 Other nonspecific abnormal finding of lung field (principal); A15.0 Tuberculosis of lung; E11.65 Type 2 diabetes mellitus with hyperglycemia; I10 Essential (primary) hypertension; K21.9 Gastro-esophageal reflux disease without esophagitis; Z86.73 Personal history of transient ischemic attack (TIA), and cerebral infarction without residual deficits; Z79.82 Long term (current) use of aspirin; Z79.4 Long term (current) use of insulin; Z79.899 Other long term (current) drug therapy
CPT/HCPCS: 36415; 36416; 71045; 71275; 78452; 80048; 80053; 80061; 82553; 83036; 83520; 84484; 85025; 86038; 86200; 86225; 86480; 86580; 87116; 87206; 87899; 89220; 93005; 93017; 93306; 94760; 96361; 96365; 96375; A9500; J0153; J1815; J1885; J2543; J3370; J7050